=== PATIENT | male | born 1965 | race Caucasian/White ===

== ENCOUNTER → 2019-11-02 | Outpatient (CLI) | payer OTHER | END | disposition home or self-care (01) | LOC: LAB 13:48 | PROVIDERS: ATTEND Nurse Anesthetist, Certified Registered | DX: Z01.818 Encounter for other preprocedural examination (principal); Z11.59 Encounter for screening for other viral diseases; Z12.11 Encounter for screening for malignant neoplasm of colon | CPT/HCPCS: U0003-CS ==

== ENCOUNTER → 2019-11-05 | Day surgery (SDC) | payer OTHER ==
[~2019-11-05] MED LIST: IPRATRPIUM/ALBUTEROL 0.5/2.5MG 3 ML NEBU. NEB PRN; IV RINGERS SOLUTION,LACTATED 1,000 ML IV SCH; MIDAZOLAM HCL PF 2 MG/2 ML VIAL. IV ONE; ONDANSETRON PF 4 MG/2 ML VIAL. IV PRN; PROPOFOL 10,000 MCG/ML (20ML) VIAL IV ONE
[2019-11-05 08:32] VITALS: BP 123/80
--- NOTE | 2019-11-06 15:08 | PATHOLOGY ---
[facility] Accession Number: [id number] . 01 Material submitted: . colon - TRANSVERSE COLON POLYP. Modifiers: transverse . 01 Clinical history: . SCREENING . 02 Diagnosis: Colon biopsies, transverse colon polyp: - Hyperplastic polyp. (JPM:nyu langone [facility]; 11/06/2019) S 11/06/2019 0857 Local . 02 Comment: There are no adenomatous changes or evidence of malignancy. (JPM:sade; 11/06/2019) . 02 Electronically signed: . Joel Montalvo MD, Pathologist NPI- [id number] . 01 Gross description: . The specimen is received in formalin, labeled "Bogdan Aracelis, transverse polyp". Received are two segments of pale story soft tissue ranging in size from 0.3 to 0.4 cm in maximum dimensions. The specimen is submitted entirely in cassette A1. ([facility]; 11/05/2019) QAC/QAC 11/05/2019 1746 Local . 02 Pathologist provided ICD-10: K63.5 . 02 CPT . 348129 Specimen Comment: A courtesy copy of this report has been sent to [phone], [phone] Specimen Comment: [phone] Specimen Comment: Report sent to / DR RUDD Specimen Comment: Report sent to Performed at: 01 [facility] [address], [place] [id number] MD Dannie Powell MD Phone: [phone] Performed at: 02 [facility] [address] [place], [place] [id number] MD Joel Montalvo MD Phone: [phone]
== END | disposition home or self-care (01) ==
LOC: SURG 06:36
PROVIDERS: ATTEND Internal Medicine Gastroenterology
DX: Z12.11 Encounter for screening for malignant neoplasm of colon (principal); K63.5 Polyp of colon; K63.89 Other specified diseases of intestine; M19.90 Unspecified osteoarthritis, unspecified site; Z79.899 Other long term (current) drug therapy; Z98.890 Other specified postprocedural states; Z96.641 Presence of right artificial hip joint
CPT/HCPCS: 45380; 88305; J2704; J7120